=== PATIENT | male | born 1990 | race Caucasian/White ===

== ENCOUNTER 2022-10-27 17:39 | Emergency (ER) | payer BC, SELFPAY ==
[2022-10-27] VITALS (8 sets, daily range): BP systolic 114–136; BP diastolic 72–78; PULSE 85–90; RESP 18; TEMP 37.7; O2SAT 93–97; BMI 30.7
--- NOTE | 2022-10-27 17:46 | ED_ITS ---
HPI - General Adult General Time Seen by Provider: 17:46 Date Seen: 10/27/22 Chief complaint: Abdominal Pain Stated complaint: Abdominal pain Time Seen by Provider: 10/27/22 17:46 History of Present Illness HPI narrative: This is a pleasant 32-year-old male with a history of kidney stones, ADHD, developmental delay, presents to the ER today for abdominal pain, bloody stools, frequent urination. He has actually been experiencing intermittent bloody/mucousy stools for about 2 weeks, since roughly early October. He was seen in the ER and [place] a week ago on 10/18. He says that he had a CT scan during that visit that showed sigmoid colitis. He has been referred for an outpatient follow-up with GI, but that appointment is not until December. We were able to get some records from [facility] everywhere from [place]. CT scan 10/18 Impression: 1. Mild mural thickening of the sigmoid colon, which is likely exaggerated underdistention but could reflect focal inflammation/colitis. There is no significant pericolonic Inflammation. 2. Normal appendix. Sodium 141, potassium 4.3, chloride 103, bicarb 28, anion gap 10, BUN 19, creatinine 1.3, glucose 102 Alk-phos 74, ALT 21, AST 15, total bilirubin 0.9, lipase 25, lactic acid 0.7 WBC 6.3, hemoglobin 16.7, platelet count 350 Since he was sent home from the ER at [place] has had ongoing pain in his abdomen. He still has occasional bloody/mucousy stools. Small volume blood. No vomiting or hematemesis. No fever. For the past several days the pain has been radiating from his lower abdomen up into his flank and sometimes up into his chest. He has been urinating more frequently than normal. No definite bloody urine. He has also been having some episodes of chest pain sometimes with breathing. He has a mild cough. He is not short of breath. No known injury. He has no previous known history of inflammatory bowel disease or any definite family history of IBD. Related Data Home Medications Medication Instructions Recorded Confirmed No Known Home Medications 10/27/22 10/27/22 Allergies Allergy/AdvReac Type Severity Reaction Status Date / Time No Known Drug Allergies Allergy Verified 10/27/22 19:29 Review of Systems Narrative: negative [facility] Medical History (Updated 10/27/22 @ 22:23 by Julius Huffman MD) Dysuria ?R30.0 - Dysuria (ICD-10) Social History Smoking Status: Current some day smoker Do you use any of these nicotine containing products: Vaping Products Second hand tobacco smoke exposure: Yes How often do you have a drink containing alcohol: monthly or less How many standard drinks containing alcohol do you have on a typical day: 5 or 6 How often do you have six or more drinks on one occasion: Less than monthly AUDIT-C Alcohol total score: 4 Non-prescribed substance use: marijuana (any form) service: No Exam Narrative: Exam Narrative: Constitutional: Appears well-developed and well-nourished. Alert. Conversant. Non toxic. HENT: Head: Atraumatic. Nose: Nose normal. Mouth/Throat: Oral mucosa is clear and moist. no trismus. Pharynx normal. Tonsils symmetric. No tonsillar enlargement, erythema, or exudate. Eyes: Conjunctivae normal. EOM normal. Pupils equal, round, and reactive to light. No scleral icterus. Neck: Normal range of motion. Neck supple. No tracheal deviation present. Cardiovascular: Normal rate, regular rhythm. No gallop. No friction rub. No murmur heard. Symmetric radial artery pulses Pulmonary/Chest: Effort normal. No stridor. Occasional nonproductive cough. No respiratory distress. No wheezes. No rales. No rhonchi . No tenderness. Abdominal: Soft. Bowel sounds normal. No distension. No mass. Right lower quadrant> left lower quadrant tenderness. No definite CVA tenderness. No rebound. No guarding. Musculoskeletal: RUE: Normal range of motion. No tenderness. No deformity LUE: Normal range of motion. No tenderness. No deformity RLE: Normal range of motion. No edema. No tenderness. No deformity LLE: Normal range of motion. No edema. No tenderness. No deformity Neurological: Alert and oriented to person, place, and time. Normal strength. CN II-VII intact. No sensory deficit. GCS eye subscore is 4. GCS verbal subscore is 5. GCS motor subscore is 6. Normal coordination Skin: Skin is warm and dry. No rash noted. No pallor. Normal capillary refill. Psychiatric: Normal mood. Normal affect. Const: Vital Signs, click to edit/add: Vital Signs - 24 hr 10/27/22 18:03 10/27/22 20:56 10/27/22 20:57 Temperature 99.9 F H Pulse Rate 88 88 Respiratory Rate 18 Blood Pressure 115/73 Blood Pressure [Ri ght Upper Arm] 136/78 Pulse Oximetry 97 93 93 Oxygen Delivery Me thod Room Air 10/27/22 21:00 10/27/22 21:01 10/27/22 21:10 Temperature Pulse Rate 85 88 90 Respiratory Rate Blood Pressure 114/75 Blood Pressure [Ri ght Upper Arm] Pulse Oximetry 93 93 94 Oxygen Delivery Me thod 10/27/22 21:16 10/27/22 21:20 Temperature Pulse Rate 87 86 Respiratory Rate Blood Pressure 114/72 Blood Pressure [Ri ght Upper Arm] Pulse Oximetry 95 95 Oxygen Delivery Me thod Course Vital Signs Vital signs: Initial Vital Signs Temperature 99.9 F H 10/27/22 18:03 Temperature Source Temporal Artery Scan 10/27/22 18:03 Respiratory Rate 18 10/27/22 18:03 Blood Pressure 136/78 10/27/22 18:03 Blood Pressure Mean 97 10/27/22 18:03 Blood Pressure Position Sitting 10/27/22 18:03 Pulse Oximetry 97 10/27/22 18:03 Oxygen Delivery Method Room Air 10/27/22 18:03 Vital Signs Temperature 99.9 F H 10/27/22 18:03 Respiratory Rate 18 10/27/22 18:03 Blood Pressure 136/78 10/27/22 18:03 Pulse Oximetry 97 10/27/22 18:03 Oxygen Delivery Method Room Air 10/27/22 18:03 Temperature 99.9 F H 10/27/22 18:03 Pulse Rate 86 10/27/22 21:20 Respiratory Rate 18 10/27/22 18:03 Blood Pressure 114/72 10/27/22 21:16 Pulse Oximetry 95 10/27/22 21:20 Oxygen Delivery Method Room Air 10/27/22 18:03 Medical Decision Making MDM Narrative Medical decision making narrative: 32-year-old male who presents to the ER today for abdominal pain, chest pain, with some cough, urinary frequency. He had been seen in the [place] ER last week and diagnosed with sigmoid colitis. With worsening pain, consider some complication of colitis such as perforation, abscess, fistula. We felt that repeat workup with CT was indicat ed. Ultimately CT scan done today does not show any evidence for colitis. After we were able to get copies of the patient's CT report it sounds like the diagnosis of colitis was a possibly equivocal diagnosis. At this point no sign of any surgical complication. Would recommend outpatient follow-up with GI to consider colonoscopy, Patient does have a history of kidney stones. CT scan does show a obstructing right ureteral kidney stone today which is probably the cause of the patient's pain would explain his flank pain. Fortunately urinalysis shows no evidence for infection. He has no sign of renal failure. 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 The stone is apparently obstructing the collecting system from the upper pole. No acute kidney injury. His pain is improved after medications given here in the ER. Discussed options with the patient is for admission for pain control (transfer to a facility with urology) or outpatient management. He is feeling much better after medications given here in the ER. With reasonable clinical confidence I think he would be safe to try to manage supportively at home with outpatient neurology follow-up. He has also been having some chest pain lately. CT scan does show evidence for a left lower lobe pneumonia which is likely the cause of his chest pain. He does have a mild cough here but no respiratory distress. No hypoxia. Would be appropriate for management with a course of outpatient antibiotics. Precautions for return to the ER reviewed. Lab Data Labs: Lab Results 10/27/22 10/27/22 Range/Units 19:02 19:30 WBC 6.81 (4.50-11.00) K/uL RBC 5.26 (4.30-5.90) m/uL Hgb 15.1 (13.5-17.5) gm/dL Hct 44.2 (37.0-53.0) % MCV 84 (80-100) fL MCH 29 (26-34) pg MCHC 34 (32-36) gm/dL RDW Coeff of Stacy 11.8 (11.5-15.5) % Plt Count 251 (140-440) K/uL Neut % (Auto) 78.4 H (42.0-72.0) % Lymph % (Auto) 9.0 L (20-44) % Taylor % (Auto) 11.5 H (0.0-11.0) % Eos % (Auto) 0.6 (0.0-7.0) % Baso % (Auto) 0.4 (0.0-3.0) % Neut # (Auto) 5.30 (1.7-7.0) K/uL Lymph # (Auto) 0.60 L (0.90-2.90) K/uL Taylor # (Auto) 0.80 (0.00-0.90) K/UL Eos # (Auto) 0.04 (0.00-0.50) K/uL Baso # (Auto) 0.03 (0.00-0.30) K/uL Abs Immat Gran (auto) 0.01 (0.00-0.30) K/uL Imm/Tot Granulo (auto) 0.1 % Sodium 134 L (135-149) mmol/L Potassium 4.1 (3.6-5.1) mmol/L Chloride 102 (96-114) mmol/L Carbon Dioxide 25 (20-32) mmol/L BUN 19 (5-24) mg/dL Creatinine 1.2 (0.5-1.5) mg/dL Estimated Creat Clear 93.25 Estimated GFR 82 ml/min Glucose 89 (60-115) mg/dL Lactate 1.0 (0.5-1.9) mmol/L Calcium 9.0 (8.4-10.6) mg/dL Urine Color Yellow (Yellow) Urine Appearance Clear (Clear) Urine pH 8.5 (5.0-8.5) Ur Specific Alice 1.015 (1.000-1.030) Urine Protein Negative (Negative) Urine Glucose (UA) Negative (Negative) Urine Ketones Trace A (Negative) Urine Blood Trace-intact A (Negative) Urine Nitrite Negative (Negative) Urine Bilirubin Negative (Negative) Urine Urobilinogen 0.2 (0.2-1.0) Ur Leukocyte Esterase Negative (Negative) Urine RBC 0-2 (0-2) Urine WBC 0-2 (0-5) Ur Squamous Epith Cells None (None-Few) Urine Bacteria None (None) Imaging Data CT scan - abdomen: My impression: Phone call from Radiology, Dr. Zeb Rodriguez at 7:[address] does not show any evidence for colitis. It does show evidence for pneumonia affecting the lower lobes of his lungs. Also a 2.5 mm kidney stone affecting the right ureter. 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 Radiologist's impression: IMPRESSION: 1. Left lower lobe airspace disease consistent with pneumonia. 2. Right-sided obstructive uropathy due to a 2.5 millimeter calcified calculus about 1 centimeter from the ureterovesical junction. 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 There is no visible ureterocele. 3. Sigmoid diverticulosis with sigmoid spasm and wall thickening but no evidence of diverticulitis or colitis. ECG Data Attestation: I personally reviewed and interpreted this ECG as follows: Interpretation: Normal sinus rhythm rate 100. (computer interpretation indicates accelerated junctional rhythm, but the patient does have P-waves in V to, V3, lead 3, lead 2) MO approximately 120. QRS axis normal axis. No pathologic Q-waves ST segment/T wave: No acute ST segment elevation or depression. QTc: 441 Discharge Plan Discharge Clinical Impression: Kidney stone, Pneumonia Patient Disposition: Home, Self-Care Condition: Stable Instructions: Kidney Stones (ED), Community Acquired Pneumonia (DC) Additional Instructions: As we discussed, we do not see any sign of ?colitis? on your CT scan tonight. It is still important for you to follow-up with the GI doctor for a colonoscopy, as directed by the other ER. We do see signs that your passing a kidney stone through the tube from the right kidney. We can see the stone in the tube on the CT scan tonight. If the stone does not pass within the next 3-4 days, you may need to follow up with the urologist. You can call [facility] schedule an appointment for kidney stone. If you have worsening or uncontrolled pain, high fever, dizziness or weakness, or any problems, come back to the ER right away. On the CT scan we also see signs that you have pneumonia. Please take the antibiotics to treat that. Come back to the ER if he had worsening trouble breathing, high fever, bad chest pain, or any problems. Be careful with prescription pain medications (hydrocodone) because they can cause drowsiness, constipation, and can be addictive. Activity Level: No Restrictions Discharge Diet: Regular Prescriptions: No Action No Known Home Medications Follow Up/Referrals: Provider,Not a Local [Primary Care Provider] - Stand Alone Forms: [facility] Info Instructions
--- NOTE | 2022-10-27 18:41 | CRLHL7_ITS ---
For Patients: As a result of the Century Cures Act, medical imaging exams and procedure reports are released immediately into your electronic medical record. You may view this report before your referring provider. If you have questions, please contact your health care provider. INDICATION: Abdomen and groin pain with recent sigmoid colitis question on CT performed elsewhere. Now worse. COMPARISON: None TECHNIQUE: CT examination of the abdomen and pelvis was performed following the uneventful intravenous administration of 108 cc of Isovue 3 7. Thin section axial images were obtained from the lung bases through the pubic symphysis. Oral contrast was not administered. Please note that all CT scans at this facility use dose modulation, iterative reconstruction, and/or weight-based dosing when appropriate to reduce radiation dose to as low as reasonably achievable. FINDINGS: LUNG BASES: Consolidation at the posterior lung base probably representing pneumonia.The heart size is normal at the lung bases. LIVER/BILIARY SYSTEM:The liver is normal in size and configuration. There is no focal mass and there is no intra- or extra hepatic biliary ductal dilatation.Hepatic steatosis. Normal appearing gallbladder ADRENALS: Normal KIDNEYS, URETERS and BLADDER:The left kidney is remarkable for an upper pole cyst measuring 2 centimeters. There are no intrarenal calculi visible on either side. There is a duplicated or perhaps partially duplicated collecting system on the right. There is obstructive uropathy of the right upper pole moiety due to a 2.5 millimeter calculus about 1 centimeter from the ureterovesical junction. The bladder appears normal. No visible ureterocele SPLEEN:Normal appearance. PANCREAS: Appears normal. RETROPERITONEUM and MESENTERY: There is no mass, adenopathy or aortic aneurysm. GASTROINTESTINAL SYSTEM: There is no evidence of diverticulitis, colitis, mechanical obstruction, or appendicitis. The small bowel as visualized appears normal.Diverticulosis and spasm/wall thickening of the sigmoid colon but no evidence of diverticulitis or colitis. PELVIS: No mass, adenopathy or free fluid. OSSEOUS STRUCTURES and ABDOMINAL WALL: There is an age-appropriate appearance of the osseous structures.No significant abdominal wall defect. OTHER: No free fluid or free air. IMPRESSION: 1. Left lower lobe airspace disease consistent with pneumonia. 2. Right-sided obstructive uropathy due to a 2.5 millimeter calcified calculus about 1 centimeter from the ureterovesical junction. 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 There is no visible ureterocele. 3. Sigmoid diverticulosis with sigmoid spasm and wall thickening but no evidence of diverticulitis or colitis. Please note that all CT scans at this facility use dose modulation, iterative reconstruction, and/or weight-based dosing when appropriate to reduce radiation dose to as low as reasonably achievable. Dictated by Enrrique Steward MD @ 10/27/2022 8:01:58 PM (Electronically Signed)
[2022-10-27] MEDS: KETOROLAC 15 MG/ML inj IVP (19:09)
[2022-10-27 19:11] LABS: Basophils Absolute Auto 0.03 K/uL (0.00-0.30); Basophils Percent Auto 0.4 % (0.0-3.0); Eosinophils Absolute Auto 0.04 K/uL (0.00-0.50); Eosinophils Percent Auto 0.6 % (0.0-7.0); Hematocrit 44.2 % (37.0-53.0); Hemoglobin* 15.1 gm/dL (13.5-17.5); Immature Granulocytes Abs Auto 0.01 K/uL (0.00-0.30); Immature Granulocytes Pct Auto 0.1 %; Mean Corpuscular HGB Conc 34 gm/dL (32-36); Mean Corpuscular Hemoglobin 29 pg (26-34); Mean Corpuscular Volume 84 fL (80-100); Monocytes Percent Auto 11.5 % (0.0-11.0); Neutrophils Percent Auto 78.4 % (42.0-72.0); Platelet Count* 251 K/uL (140-440); RDW Coefficient of Variation % 11.8 % (11.5-15.5); Red Blood Count 5.26 m/uL (4.30-5.90); White Blood Count* 6.81 K/uL (4.50-11.00)
[2022-10-27 19:13] LABS: Slide Review Reflex No
[2022-10-27 19:33] LABS: Chloride* 102 mmol/L (96-114)
[2022-10-27 19:34] LABS: Sodium* 134 mmol/L (135-149)
[2022-10-27 19:36] LABS: Creatinine* 1.2 mg/dL (0.5-1.5); Est. Creatinine Clearance* 93.25; Estimated Glomerular Filt Rate 82 ml/min
[2022-10-27 19:37] LABS: Blood Urea Nitrogen* 19 mg/dL (5-24); Carbon Dioxide* 25 mmol/L (20-32); Glucose* 89 mg/dL (60-115)
[2022-10-27 19:51] LABS: Potassium* 4.1 mmol/L (3.6-5.1)
[2022-10-27 20:05] LABS: Appearance Urine Clear (Clear); Bilirubin Urine Negative (Negative); Blood Urine Trace-intact (Negative); Color Urine Yellow (Yellow); Glucose Urine Negative (Negative); Ketones Urine Trace (Negative); Leukocyte Esterase Urine Negative (Negative); Nitrite Urine Negative (Negative); Protein Urine Negative (Negative); Specific Gravity Urine 1.015 (1.000-1.030); Urobilinogen Urine 0.2 (0.2-1.0); pH Urine 8.5 (5.0-8.5)
[2022-10-27 20:12] LABS: RBC Urine 0-2 (0-2); WBC Urine 0-2 (0-5)
[2022-10-27] MEDS: HYDROmorphone 0.5 mg/0.5 ml inj IVP (20:38)
== END 2022-10-27 22:43 | disposition home or self-care (01) ==
PROVIDERS: Emergency Provider Emergency Medicine
DX: N20.0 Calculus of kidney (principal); J18.9 Pneumonia, unspecified organism
CPT/HCPCS: 36415; 74177; 80048; 81001; 83605; 85025; 87045; 87046; 87427; 96374; 96375; 99284; J1170; J1885; Q9967

== ENCOUNTER 2022-12-09 13:20 | Outpatient (CLI) | payer BC, SELFPAY | END 2022-12-09 13:21 | disposition home or self-care (01) | LOC: FRMREF 13:25 | PROVIDERS: Visit Provider Family Medicine | DX: Z01.818 Encounter for other preprocedural examination (principal) | CPT/HCPCS: 80048 ==

== ENCOUNTER 2023-07-30 00:13 | Emergency (ER) | payer BC, SELFPAY ==
[2023-07-30 00:22] VITALS: BP 119/76; PULSE 89; RESP 20; TEMP 36.7; O2SAT 96; BMI 30.7
--- NOTE | 2023-07-30 00:29 | ED.GENADULT ---
HPI - General Adult General Chief complaint: Cough Stated complaint: cough,congestion Time Seen by Provider: 07/30/23 00:24 History of Present Illness HPI narrative: PATIENT IS A 33-YEAR-OLD GENTLEMAN WHO UNFORTUNATELY HAS 2 DAYS OF COUGHING CONGESTION. HE HAS HAD NO FEVERS NO CHILLS NO NIGHT SWEATS. HE FEELS FULLNESS IN HIS EARS BUT NO PHARYNGITIS. HIS COUGH HAS BEEN NONPRODUCTIVE. HE HAS HAD NO CHANGES BOWEL OR BLADDER NO HEADACHES NO STIFF NECK. NO RECENT SICK CONTACTS. Related Data Home Medications Medication Instructions Recorded Confirmed No Known Home Medications 07/30/23 07/30/23 Allergies Allergy/AdvReac Type Severity Reaction Status Date / Time No Known Drug Allergies Allergy Verified 07/30/23 00:23 Review of Systems Status of ROS: Reports: 10 or more systems reviewed and unremarkable except as noted in History and below PFSH PFS Social History Smoking Status: Current some day smoker Do you use any of these nicotine containing products: Vaping Products Second hand tobacco smoke exposure: Yes How often do you have a drink containing alcohol: monthly or less How many standard drinks containing alcohol do you have on a typical day: 5 or 6 How often do you have six or more drinks on one occasion: Less than monthly AUDIT-C Alcohol total score: 4 Non-prescribed substance use: marijuana (any form) service: No Exam Narrative: Exam Narrative: EXAM GENERAL: Patient appears comfortable and well. EYES: No scleral icterus. ENT: Tympanic membranes and oropharynx normal. THYROID: no thyroid nodules or thyromegaly. LYMPH: No supraclavicular or cervical lymphadenopathy. SKIN: Visible skin seen during exam normal or with benign process only. EXT: No dependent lower extremity pedal edema. HEART: Regular rate and rhythm with no murmurs, rubs, or gallops. LUNGS: Clear to auscultation bilaterally with no crackles or wheezes. ABD: Soft, non tender, non distended. PSYCH: Good eye contact, speech is not pressured. Const: Vital Signs, click to edit/add: Vital Signs - 24 hr 07/30/23 00:22 Temperature 98.0 F Pulse Rate [Right Pulse Oximeter] 89 Respiratory Rate 20 Blood Pressure [Ri ght Upper Arm] 119/76 Pulse Oximetry 96 Oxygen Delivery Me thod Room Air Course Course ED Course: Patient seen and examined. Vital Signs Vital signs: Initial Vital Signs Respiratory Effort Normal, Spontaneous, Non-Labored 07/30/23 00:21 Respiratory Depth Normal 07/30/23 00:21 Respiratory Pattern Normal 07/30/23 00:21 Vital Signs Temperature 98.0 F 07/30/23 00:22 Pulse Rate 89 07/30/23 00:22 Respiratory Rate 20 07/30/23 00:22 Blood Pressure 119/76 07/30/23 00:22 Pulse Oximetry 96 07/30/23 00:22 Oxygen Delivery Method Room Air 07/30/23 00:22 Temperature 98.0 F 07/30/23 00:22 Pulse Rate 89 07/30/23 00:22 Respiratory Rate 20 07/30/23 00:22 Blood Pressure 119/76 07/30/23 00:22 Pulse Oximetry 96 07/30/23 00:22 Oxygen Delivery Method Room Air 07/30/23 00:22 Medical Decision Making MDM Narrative Medical decision making narrative: Patient is a healthy 33-year-old gentleman comes in tonight with cough and congestion. He has completely normal vital signs and a completely normal exam. We did swab him for COVID influenza and RSV but believe these will be negative. Will follow with him based on these results. Differential diagnosis includes but not limited to pneumonia viral syndrome congestive heart failure bronchitis asthma. Discharge Plan Discharge Clinical Impression: Acute viral syndrome Patient Disposition: Home, Self-Care Condition: Stable Instructions: Viral Syndrome (ED) Additional Instructions: Tylenol Motrin Rest Fluids Activity Level: No Restrictions Discharge Diet: Regular Prescriptions: No Action No Known Home Medications Follow Up/Referrals: Provider,Not a Local [Primary Care Provider] - Stand Alone Forms: [facility] Info Instructions
[2023-07-30 00:50] VITALS: BP 121/78; PULSE 84; RESP 20; TEMP 36.7; O2SAT 96
[2023-07-30 00:51] VITALS: BP 121/78; PULSE 84; RESP 20; TEMP 36.7
[2023-07-30 01:28] LABS: PCR FLU A Negative PCR FLU A (Negative); PCR FLU B Negative PCR FLU B (Negative); SARS PCR* Negative SARS-CoV-2 (Negative)
== END 2023-07-30 00:51 | disposition home or self-care (01) ==
LOC: ED 00:32
PROVIDERS: Emergency Provider Internal Medicine
DX: B34.9 Viral infection, unspecified (principal)
CPT/HCPCS: 87631; 99283

== ENCOUNTER 2024-03-09 03:17 | Emergency (ER) | payer BC, SELFPAY ==
[2024-03-09 03:20] VITALS: BP 125/84; PULSE 74; RESP 18; TEMP 36.6; O2SAT 98; BMI 30.7
--- NOTE | 2024-03-09 04:07 | CRLHL7_ITS ---
For Patients: As a result of the Century Cures Act, medical imaging exams and procedure reports are released immediately into your electronic medical record. You may view this report before your referring provider. If you have questions, please contact your health care provider. INDICATION: Left lower quadrant pain, history of stones. TECHNIQUE: CT abdomen and pelvis without contrast. COMPARISON: CT abdomen and pelvis October 2022. FINDINGS: Lower chest: Unremarkable. Liver: Normal in size and attenuation. No suspicious masses on a non-contrast exam . Gallbladder and bile ducts: No stones or inflammation. No biliary dilatation. Pancreas: No mass or inflammation. Spleen: Normal in size. No masses. Adrenal glands: No suspicious mass. Kidneys: Partially obstructing calculus of 3 millimeter in the distal left ureter, a centimeter of a surround the vesicoureteric junction with mild proximal hydroureteronephrosis. Redemonstration of partially duplicated right renal collecting system with double ureter identified in the upper and mid part. Difficult assessment of the distal ureters on noncontrast exam. No right-sided nephrolithiasis or hydronephrosis. Urinary bladder is minimally distended without wall thickening. GI tract: No bowel obstruction. Normal appendix. Vasculature: Abdominal aorta is normal in caliber. Lymph nodes: No lymphadenopathy. Peritoneum/Abdominal Wall: No free air or significant free fluid. Small fat containing umbilical hernia. Pelvis: No pelvic masses. Bones: Lumbar vertebral body height and alignment is maintained. IMPRESSION: Partially obstructing left distal ureteric calculus of 3 millimeter (1 centimeter from the UVJ) with mild proximal hydroureteronephrosis. Please note that all CT scans at this facility use dose modulation, iterative reconstruction, and/or weight-based dosing when appropriate to reduce radiation dose to as low as reasonably achievable. Dictated by Ranjeet Samson MD @ 03/09/2024 4:38:34 AM (Electronically Signed)
--- NOTE | 2024-03-09 04:11 | ED_ITS ---
HPI - General Adult General Chief complaint: Abdominal Pain Stated complaint: Abdominal and groin pain Time Seen by Provider: 03/09/24 03:49 Source: patient Mode of arrival: ambulatory Limitations: no limitations History of Present Illness HPI narrative: 33-year-old male presents the emergency department for evaluation of suprapubic area pain. Started a few hours ago. No back pain. Feels very similar to when he had a kidney stone last year that did ultimately require surgery to remove. He is uncertain if there were extra stones noted at the time. No nausea or vomiting, no dysuria. Does feel like it is a little hard to urinate but he has been pushing fluids. No hematuria noted. No diarrhea. No abdominal injury or trauma. Does not take any prescription medications, denies prior abdominal surgeries besides the stenting. No long-term health problems, allergies are prescription medications. Review of the records shows 2.5 mm UVJ stone in October of 2022. Patient not immunocompromised. Did not try any interventions prior to coming to ED. Pain is achy and constant. Past medical history benign besides prior kidney stone, no long-term medications or allergies, nonsmoker. ROS is notable for the urinary and abdominal symptoms as above only, otherwise denies times 12 systems. Related Data Previous Rx's ?Medication ?Instructions ?Recorded tamsulosin 0.4 mg capsule 0.4 mg PO DAILY PRN Kidney stone 03/09/24 #10 caps Allergies Allergy/AdvReac Type Severity Reaction Status Date / Time No Known Drug Allergies Allergy Verified 01/10/24 16:08 [facility] Social History Smoking Status: Current some day smoker Do you use any of these nicotine containing products: Vaping Products Second hand tobacco smoke exposure: Yes How often do you have a drink containing alcohol: monthly or less How many standard drinks containing alcohol do you have on a typical day: 5 or 6 How often do you have six or more drinks on one occasion: Less than monthly AUDIT-C Alcohol total score: 4 Non-prescribed substance use: marijuana (any form) service: No Exam Const: Vital Signs, click to edit/add: Vital Signs - 24 hr 03/09/24 03:20 Temperature 97.9 F Pulse Rate [Pulse Oximeter] 74 Respiratory Rate 18 Blood Pressure [Ri ght Upper Arm] 125/84 Pulse Oximetry 98 Oxygen Delivery Me thod Room Air Documenting provider has reviewed patient's vital signs: yes Common normals: no apparent distress and alert General appearance: cooperative and well kempt HENMT: Common normals: normocephalic, moist oral mucous membranes and oropharynx normal Head and scalp: normocephalic Eye: Common normals: conjunctivae normal General eye: normal appearance of both eyes Conjunctiva: conjunctiva(e) normal Neck & C-Spine: Common normals: no lymphadenopathy General: normal visual inspection Resp: Common normals: normal respiratory effort, no use of accessory muscles and clear to auscultation bilaterally Effort & inspection: able to speak in complete sentences Auscultation: clear to auscultation bilaterally Cardio: Common normals: regular rate, regular rhythm, S1 normal heart sound, S2 normal heart sound and no murmurs Rate: regular rate Rhythm: regular rhythm Heart sounds: S1 normal and S2 normal GI: Common normals: Normal to inspection, nondistended, normoactive bowel sounds present, soft to palpation, no hepatosplenomegaly and no masses Palpation: soft and no hepatosplenomegaly Other: Mildly tender to palpation suprapubic and left lower quadrant only. Certainly no rebound tenderness no guarding. : Common normals: no CVA tenderness Bladder/kidney exam: no CVA tenderness Back & Pelvis: Common normals: no CVA tenderness Extremity: Common normals: normal to inspection, normal capillary refill and no pedal edema Neuro: Sensorium/orientation: alert Speech: speech normal Gait (neuro): normal gait Psych: Appearance: well kempt Attitude: engaged Insight: insight good Judgement: judgment good Skin: Common normals: no rashes or lesions noted General skin exam: no rashes or lesions noted Course Course ED Course: 33-year-old male with suprapubic area pain suspicious for kidney stone, prior history of kidney stones. Differential diagnosis also includes colitis, urinary tract infection, kidney stone, pancreatitis, musculoskeletal etiology, gastritis, amongst others. Will place peripheral IV, give 15 of Toradol, 4 of Zofran, urinalysis, typical intra-abdominal labs, anticipate CT of the abdomen and pelvis without contrast. Reevaluation(s) Time of Reevaluation #1: 05:02 Reevaluation #1: counseled patient on findings. Labs are overall reassuring. 3 mm left distal ureteral stone noted. This is unlikely to need Urology consult or intervention. Patient hesitant as he has required intervention in the past. Will start on Flomax to help cut down on spasm. Prescriptions for Toradol and a few hydrocodone given if needed. Alarm symptoms reviewed that would warrant ED presentation. Watch for signs of infection, strain urine. Prescriptions for Flomax sent to pharmacy, remainder of other medications from [employer]. Patient verbalized understanding and agreement, written instructions provided. Vital Signs Vital signs: Initial Vital Signs Temperature 97.9 F 03/09/24 03:20 Temperature Source Temporal Artery Scan 03/09/24 03:20 Pulse Rate 74 03/09/24 03:20 Respiratory Rate 18 03/09/24 03:20 Blood Pressure 125/84 03/09/24 03:20 Blood Pressure Mean 97 03/09/24 03:20 Pulse Oximetry 98 03/09/24 03:20 Oxygen Delivery Method Room Air 03/09/24 03:20 Vital Signs Temperature 97.9 F 03/09/24 03:20 Pulse Rate 74 03/09/24 03:20 Respiratory Rate 18 03/09/24 03:20 Blood Pressure 125/84 03/09/24 03:20 Pulse Oximetry 98 03/09/24 03:20 Oxygen Delivery Method Room Air 03/09/24 03:20 Temperature 97.9 F 03/09/24 03:20 Pulse Rate 74 03/09/24 03:20 Respiratory Rate 18 03/09/24 03:20 Blood Pressure 125/84 03/09/24 03:20 Pulse Oximetry 98 03/09/24 03:20 Oxygen Delivery Method Room Air 03/09/24 03:20 Medications Administered Medications: Generic Name Dose Route Start Last Admin Trade Name Freq PRN Reason Stop Dose Admin Ketorolac Tromethamine 15 mg 03/09/24 04:07 03/09/24 04:30 Ketorolac 15 Mg/Ml Inj IVP 03/09/24 04:08 15 mg ONCE ONE Administration Ondansetron HCl 4 mg 03/09/24 04:07 03/09/24 04:40 Ondansetron 2 Mg/Ml Inj IVP 03/09/24 04:08 4 mg ONCE ONE Administration Medical Decision Making Lab Data Lab results reviewed: Yes I reviewed the patient's lab results Labs: Lab Results 03/09/24 03/09/24 Range/Units 03:57 04:30 WBC 5.35 (4.50-11.00) K/uL RBC 5.31 (4.30-5.90) m/uL Hgb 15.2 (13.5-17.5) gm/dL Hct 44.8 (37.0-53.0) % MCV 84 (80-100) fL MCH 29 (26-34) pg MCHC 34 (32-36) gm/dL RDW Coeff of Stacy 12.3 (11.5-15.5) % Plt Count 282 (140-440) K/uL Neut % (Auto) 55.8 (42.0-72.0) % Lymph % (Auto) 28.8 (20-44) % [place] % (Auto) 12.3 H (0.0-11.0) % Eos % (Auto) 2.2 (0.0-7.0) % Baso % (Auto) 0.7 (0.0-3.0) % Neut # (Auto) 2.98 (1.7-7.0) K/uL Lymph # (Auto) 1.54 (0.90-2.90) K/uL [place] # (Auto) 0.70 (0.00-0.90) K/UL Eos # (Auto) 0.12 (0.00-0.50) K/uL Baso # (Auto) 0.04 (0.00-0.30) K/uL Abs Immat Gran (auto) 0.01 (0.00-0.30) K/uL Imm/Tot Granulo (auto) 0.2 % Urine Color Yellow (Yellow) Urine Appearance Clear (Clear) Urine pH 5.5 (5.0-8.5) Ur Specific [place] <= 1.005 (1.000-1.030) Urine Protein Negative (Negative) Urine Glucose (UA) Negative (Negative) Urine Ketones Negative (Negative) Urine Blood 3+ A (Negative) Urine Nitrite Negative (Negative) Urine Bilirubin Negative (Negative) Urine Urobilinogen 0.2 (0.2-1.0) Ur Leukocyte Esterase Negative (Negative) Urine RBC 0-2 (0-2) Urine WBC 0-2 (0-5) Ur Squamous Epith Cells None (None-Few) Urine Bacteria None (None) Imaging Data CT scan - abdomen: Attestation: I have reviewed the pertinent imaging results. My impression: Small nonobstructing left ureteral stone, very mild hydronephrosis, no other abnormality Radiologist's impression: IMPRESSION: Partially obstructing left distal ureteric calculus of 3 millimeter (1 centimeter from the UVJ) with mild proximal hydroureteronephrosis. Discharge Plan Discharge Clinical Impression: Calculus of distal left ureter Patient Disposition: Home, Self-Care Condition: Improved Instructions: Ureteral Stones (ED) Additional Instructions: As we discussed, you have a 3 mm stone at the left distal ureter, just about 1 cm before the entrance to the bladder. This is a common place for stones to get temporarily hung up and cause symptoms. You do have a double ureter on the right but only 1 urethra. Urine out any on the left side is normal. Because of this, this stone on the left should pass without difficulty. The urologist typically want us to refer a patient if the stone is larger than 5 mm. Stones this size almost always passed without difficulty. For pain, I recommend Tylenol 1000 mg every 6 hours. I have given her prescription for Toradol, and anti-inflammatory pain medication to take once every 6 hours as needed. Will give you a very small supply of hydrocodone if the pain is severe. I would also like for you to start Flomax. Your given a dose here in the emergency department today. This is also known as tamsulosin. This may help dilate open the ureter slightly to allow the stone to pass more easily but I find that it does help cut down on the spasm. Take this once daily until the stone passes. I will send a prescription for this to your pharmacy, the other medications you can greens picker from the vending machine in the lobby. He can take up to a couple weeks for the stone to pass. Strain your urine so that you may know more clearly when it does pass. If you start running high fever, has symptoms of infection, have severe weakness, you should return to the emergency department. It is incredibly rare that a stone this size would need surgical treatment but not impossible. Activity Level: No Restrictions Discharge Diet: Regular Prescriptions: New tamsulosin 0.4 mg capsule 0.4 mg PO DAILY PRN (Reason: Kidney stone) Qty: 10 0RF Rx Instructions: Take once daily to help stone pass and cut down on ureteral spasm Follow Up/Referrals: Provider,Not a Local [Primary Care Provider] - Stand Alone Forms: [employer] Info Instructions
[2024-03-09] MEDS: KETOROLAC 15 MG/ML inj IVP (04:30)
[2024-03-09 04:35] LABS: Appearance Urine Clear (Clear); Bilirubin Urine Negative (Negative); Blood Urine 3+ (Negative); Color Urine Yellow (Yellow); Glucose Urine Negative (Negative); Ketones Urine Negative (Negative); Leukocyte Esterase Urine Negative (Negative); Nitrite Urine Negative (Negative); Protein Urine Negative (Negative); Specific Gravity Urine <= 1.005 (1.000-1.030); Urobilinogen Urine 0.2 (0.2-1.0); pH Urine 5.5 (5.0-8.5)
[2024-03-09] MEDS: ONDANSETRON 2 MG/ML inj 4 MG IVP (04:40)
[2024-03-09 04:41] LABS: RBC Urine 0-2 (0-2); WBC Urine 0-2 (0-5)
[2024-03-09 04:45] LABS: Basophils Absolute Auto 0.04 K/uL (0.00-0.30); Basophils Percent Auto 0.7 % (0.0-3.0); Eosinophils Absolute Auto 0.12 K/uL (0.00-0.50); Eosinophils Percent Auto 2.2 % (0.0-7.0); Hematocrit 44.8 % (37.0-53.0); Hemoglobin* 15.2 gm/dL (13.5-17.5); Immature Granulocytes Abs Auto 0.01 K/uL (0.00-0.30); Immature Granulocytes Pct Auto 0.2 %; Lymphocytes Absolute Auto 1.54 K/uL (0.90-2.90); Lymphocytes Percent Auto 28.8 % (20-44); Mean Corpuscular HGB Conc 34 gm/dL (32-36); Mean Corpuscular Hemoglobin 29 pg (26-34); Mean Corpuscular Volume 84 fL (80-100); Monocytes Percent Auto 12.3 % (0.0-11.0); Neutrophils Absolute Auto 2.98 K/uL (1.7-7.0); Neutrophils Percent Auto 55.8 % (42.0-72.0); Platelet Count* 282 K/uL (140-440); RDW Coefficient of Variation % 12.3 % (11.5-15.5); Red Blood Count 5.31 m/uL (4.30-5.90); White Blood Count* 5.35 K/uL (4.50-11.00)
[2024-03-09 04:46] LABS: Slide Review Reflex No
[2024-03-09 04:59] LABS: Albumin* 4.4 g/dL (3.3-5.0); Chloride* 103 mmol/L (96-114)
[2024-03-09 05:00] LABS: Potassium* 3.7 mmol/L (3.6-5.1); Sodium* 134 mmol/L (135-149)
[2024-03-09 05:02] LABS: Alkaline Phosphatase* 58 U/L (40-150); Anion Gap 9 mEq/L (7-15); Aspartate Amino Transferase* 21 U/L (12-35); Bilirubin Direct* 0.3 mg/dL (0.0-0.5); Bilirubin Total* 1.2 mg/dL (0.1-1.5); Blood Urea Nitrogen* 22 mg/dL (5-24); Carbon Dioxide* 22 mmol/L (20-32); Est. Creatinine Clearance* 110.86; Estimated Glomerular Filt Rate 101 ml/min; Lipase* 63 U/L (23-300)
[2024-03-09 05:03] LABS: Alanine Aminotransferase* 19 U/L (4-50); Calcium* 8.9 mg/dL (8.4-10.6); Glucose* 94 mg/dL (60-115)
[2024-03-09 05:14] LABS: C Reactive Protein* < 0.5 mg/dL (0.5-1.0)
--- NOTE | 2024-03-09 05:16 | PC.NURSE ---
Written and verbal D/C per MD and RN. IV D/C intact. Pt acknowledge paln of care. Able to get meds out of intsy med machine
== END 2024-03-09 05:30 | disposition home or self-care (01) ==
PROVIDERS: Emergency Provider Family Medicine
DX: N20.1 Calculus of ureter (principal)
CPT/HCPCS: 36415; 74176; 80048; 80076; 81001; 81003; 83690; 85025; 86140; 96374; 96375; 99284; J1885; J2405

== ENCOUNTER 2024-12-24 15:15 | Outpatient (CLI) | payer BC, SELFPAY | END 2024-12-24 15:16 | disposition home or self-care (01) | LOC: NFLDREF 12-30 20:18 | PROVIDERS: Visit Provider Family Medicine | DX: Z00.00 Encounter for general adult medical examination without abnormal findings (principal) | CPT/HCPCS: 80053 ==